=== PATIENT | female | born 1955 | race Caucasian/White ===

== ENCOUNTER 2022-11-22 08:12 | Emergency (ER) | payer OTHER ==
[~2022-11-22] VITALS: Ht 165.1 cm; Wt 88.0 kg
[2022-11-22] MEDS ORDERED: MORGIDOX100 MG PO (08:34)
[2022-11-22] MEDS ORDERED: FLAGYL375 MG PO (08:34)
[2022-11-22] MEDS ORDERED: ZESTRIL10 M1 PO (08:35)
[2022-11-22] MEDS ORDERED: LEVO-T175 MCG PO (08:35)
[2022-11-22] MEDS ORDERED: COMBIVENT RESPIM4 GM IH (08:36)
[2022-11-22] MEDS ORDERED: ADVAIR HFA 230/12 GM IH (08:36)
[2022-11-22] MEDS ORDERED: NEXIUM5 MG PO (08:36)
[2022-11-22] MEDS ORDERED: MONTELUKAST SODI4 M1 PO (08:36)
[2022-11-22] MEDS ORDERED: CYTOMEL5 MCG PO (08:36)
== END 2022-11-22 09:51 | disposition home or self-care (01) ==
LOC: ER 08:12
DX: L03.115 Cellulitis of right lower limb (principal); Z88.2 Allergy status to sulfonamides; Z88.0 Allergy status to penicillin; Z88.1 Allergy status to other antibiotic agents